=== PATIENT | female | born 1970 | race Caucasian/White ===

== ENCOUNTER 2017-03-06 02:37 | Emergency (ER) | payer MEDICAID, OTHER ==
[~2017-03-06] VITALS: Ht 157.5 cm; Wt 81.8 kg
[~2017-03-06 02:37] MED LIST: BACI28.34 TOP
[2017-03-06 02:44] VITALS: Ht 157.5 cm; Wt 81.8 kg
[2017-03-06] MEDS ORDERED: BEN50 PO (04:26)
[2017-03-06] MEDS ORDERED: IBUP-1542 PO (04:26)
[2017-03-06] MEDS ORDERED: CEPH-443 PO (04:26)
--- NOTE | 2017-03-06 04:49 | ERD ---
ER Documentation Chief Complaint Chief Complaint bit by spider behind left thigh. c/o redness and pain. HPI 46-year-old female presents to emergency department for complaints of an insect bite on the back of the left thigh tonight. Patient is complaining of pain redness and swelling, throbbing pain, 4/10 scale, as was upon touching the area. Patient denies any fever or chills. ROS All systems reviewed and are negative except as per history of present illness. Medications Home Meds Active Scripts Diphenhydramine Hcl* (Benadryl*) 50 Mg Cap, 50 MG PO Q6H Y for ITCHING/RASH, # 30 CAP Prov:ERLIN RIVERA MAINTENANCE SERVICE DISPATCHER 03/06/17 Ibuprofen* (Motrin*) 600 Mg Tab, 600 MG PO Q6H Y for PAIN AND OR ELEVATED TEMP, #30 TAB Prov:ERLIN RIVERA MAINTENANCE SERVICE DISPATCHER 03/06/17 Cephalexin* (Keflex*) 500 Mg Capsule, 500 MG PO QID for 7 Days, CAP Prov:ERLIN RIVERA MAINTENANCE SERVICE DISPATCHER 03/06/17 Bacitracin* (Bacitracin Zinc Oint*) 28.35 Gm Oint, 1 APPLIC TOP BID, #1 TUB APPLI TO Prov:FIDEL ROUSSEAU PA-C 11/07/15 Allergies Allergies: Coded Allergies: No Known Allergy (Unverified , 11/07/15) PMhx/Soc History of Surgery: Yes () Anesthesia Reaction: No Hx Neurological Disorder: No Hx Respiratory Disorders: No Hx Cardiac Disorders: No Hx Psychiatric Problems: No Hx Miscellaneous Medical Probl: No Hx Alcohol Use: No Hx Substance Use: No Hx Tobacco Use: No Smoking Status: Never smoker FmHx Family History: No coronary disease, No diabetes, No other Physical Exam Vitals Vital Signs Date Time Temp Pulse Resp B/P Pulse Ox O2 Delivery O2 Flow Rate FiO2 03/06/17 02:44 97.3 86 18 149/88 97 Physical Exam GENERAL: The patient is well developed and appropriate for usual state of health, in no apparent distress. CHEST: Clear to auscultation bilaterally. There are no rales, wheezes or rhonchi. HEART: Regular rate and rhythm. No murmurs, clicks, rubs or gallops. No S3 or S4. ABDOMEN: Soft, nontender and nondistended. Good bowel sounds. No rebound or guarding. No gross peritonitis. No gross organomegaly or masses. No Oconnor sign or McBurney point tenderness. BACK: No midline or flank tenderness. EXTREMITIES: Equal pulses bilaterally. There is no peripheral clubbing, cyanosis or edema. No focal swelling or erythema. Full range of motion. Grossly neurovascularly intact. NEURO: Alert and oriented. Cranial nerves 2-12 intact. Motor strength in all 4 extremities with 5/5 strength. Sensation grossly intact. Normal speech and gait. SKIN: 2 cm diameter erythematous indurated area in the left eye. No fluctuance noted. There is no apparent rash or petechia. The skin is warm and dry. HEMATOLOGIC AND LYMPHATIC: There is no evidence of excessive bruising or lymphedema. No gross cervical, axillary, or inguinal lymphadenopathy. Procedures/MDM Medical decision making: Patient symptoms was likely is consistent with insect bite, no symptoms of any infection at this time, no symptoms of any cellulitis, no symptoms of any neurovascular compromise, no symptoms of any necrosis. Prescription was given for Benadryl, ibuprofen, Keflex to prevent infection, is advised to follow-up with primary care doctor in 2 days for reevaluation of symptoms. Patient is advised to return to emergency department for any worsening symptoms. Disposition: Home. Stable. Departure Diagnosis: Primary Impression: Insect bite Encounter type: initial encounter Qualified Code: W57.XXXA - Insect bite, initial encounter Condition: Stable Patient Instructions: Insect Bite ERLIN RIVERA NP Mar 06, 2017 04:49
== END 2017-03-06 04:39 | disposition home or self-care (01) ==
LOC: FTE 02:37
DX: S70.361A Insect bite (nonvenomous), right thigh, initial encounter (principal); W57.XXXA Bitten or stung by nonvenomous insect and other nonvenomous arthropods, initial encounter; Y92.9 Unspecified place or not applicable
CPT/HCPCS: 99283

== ENCOUNTER 2017-05-21 09:10 | Emergency (ER) | END 2017-05-21 12:10 | disposition home or self-care (01) ==

== ENCOUNTER 2018-07-14 22:20 | Emergency (ER) | payer OTHER ==
[~2018-07-14] VITALS: Ht 157.5 cm; Wt 81.8 kg
[~2018-07-14 22:20] MED LIST changes: +BEN50 PO; +CEPH-443 PO; +IBUP-1542 PO; +NAPR-985 PO
[2018-07-14 22:22] VITALS: Ht 157.5 cm; Wt 81.8 kg
[2018-07-15] MEDS ORDERED: HYDROCODONE/APAP (5/325) TAB PO ONE (00:30)
[2018-07-15] MEDS ORDERED: IBUPROFEN 600 MG TAB PO ONE (00:30)
--- NOTE | 2018-07-15 00:38 | ERD ---
ER Documentation Chief Complaint Chief Complaint R ankle, L knee pain/swelling after fall 1 hr ago HPI This is a 47-year-old female with a history of hypertension diabetes mellitus presents ED with right ankle injury status post ground-level fall that occurred 1 hour prior to arrival in ED. Patient states that as she was walking down some stairs she accidentally missed a step causing her right ankle to invert. Patient admits to painful range of motion and decreased range of motion. Admits to difficulty ambulating. Denies tingling, numbness, lack sensation in all other symptoms. ROS All systems reviewed and are negative except as per history of present illness. Medications Home Meds Active Scripts Naproxen* (Naprosyn*) 500 Mg Tablet, 500 MG PO BID PRN for PAIN AND/OR INFLAMMATION, #30 TAB Prov:SHERYL ZAIDI PA-C 05/21/17 Diphenhydramine Hcl* (Benadryl*) 50 Mg Cap, 50 MG PO Q6H PRN for ITCHING/RASH, #30 CAP Prov:ERLIN RIVERA NP 03/06/17 Ibuprofen* (Motrin*) 600 Mg Tab, 600 MG PO Q6H PRN for PAIN AND OR ELEVATED TEMP, #30 TAB Prov:ERLIN RIVERA NP 03/06/17 Cephalexin* (Keflex*) 500 Mg Capsule, 500 MG PO QID for 7 Days, CAP Prov:ERLIN RIVERA NP 03/06/17 Bacitracin* (Bacitracin Zinc Oint*) 28.35 Gm Oint, 1 APPLIC TOP BID, #1 TUB APPLI TO Prov:FIDEL ROUSSEAU PA-C 11/07/15 Allergies Allergies: Coded Allergies: No Known Allergy (Unverified , 05/21/17) PMhx/Soc History of Surgery: Yes () Anesthesia Reaction: No Hx Neurological Disorder: No Hx Respiratory Disorders: No Hx Cardiac Disorders: No Hx Psychiatric Problems: No Hx Miscellaneous Medical Probl: Yes (HTN) Hx Alcohol Use: No Hx Substance Use: No Hx Tobacco Use: No Smoking Status: Never smoker FmHx Family History: diabetes Physical Exam Vitals Vital Signs Date Temp Pulse Resp B/P (MAP) Pulse Ox O2 O2 Flow FiO2 Time Delivery Rate 07/14/18 98.6 88 18 148/88 98 22:22 (108) Physical Exam Const: No acute distress Head: Atraumatic Eyes: Normal Conjunctiva ENT: Normal External Ears, Nose and Mouth. Neck: Full range of motion. No meningismus. Resp: Clear to auscultation bilaterally Cardio: Regular rate and rhythm, no murmurs Ext: No cyanosis Lower Extremity -right Skin: No laceration, moderate swelling and ecchymosis of right lateral malleolus, bruising extends along right lateral forefoot Compartments: Soft Motor: Full active range of motion hip/knee/ankle/foot Sensation: Intact to light touch FDWS/MF/LF/P surfaces. Bones: Moderate tenderness palpation along malleoli and lateral foot, nontender pelvis/knee/proximal tibia/ Joints: No effusion or laxity Pulses/Perfusion: 2+ DP, Capillary refill < 2 seconds Neur: Awake and alert Psych: Normal Mood and Affect Results 24 hrs Current Medications Medications Dose Sig/Laith Start Time Status Last (Trade) Ordered Route PRN Stop Time Admin Dose Reason Admin 1 tab ONCE ONCE 07/15/18 DC 07/15/18 Acetaminophen PO 00:30 07/15/18 00:33 / 00:31 Hydrocodone Bitart ([place] (5/325)) Ibuprofen 600 mg ONCE ONCE 07/15/18 DC 07/15/18 (Motrin) PO 00:30 07/15/18 00:32 00:31 Procedures/MDM EKG, MONITORS, & DIAGNOSTIC IMAGING: [place] [address] Radiology Main Line: [phone] DIAGNOSTIC IMAGING REPORT Patient: LILIANA SMITH : 1970 Age: 47 Sex: F MR #: [id number] DOS: 07/15/18 0020 Ordering MD: ANGELIQUE PEÑA PA-C Location: [facility] Room/Bed: PROCEDURE: Right ankle. CLINICAL INDICATION: Pain. TECHNIQUE: Three views including AP, lateral and oblique views were performed. COMPARISON: None. FINDINGS: There is a transverse fracture of the distal fibula with overlying soft tissue swelling. There is no dislocation. The ankle mortise is within normal limits. Bone mineralization is within normal limits. There is no radiopaque foreign body or abnormal calcification. IMPRESSION: Distal fibular fracture with overlying soft tissue swelling. .David Gonzales MD, MD Date Time Electronically viewed and signed by .David Gonzales MD, MD on 07/15/2018 01:31 .T/ CC: ANGELIQUE PEÑA PA-C [id number] [place] [address] Radiology Main Line: [phone] DIAGNOSTIC IMAGING REPORT Patient: LILIANA SMITH : 1970 Age: 47 Sex: F MR #: [id number] DOS: 07/15/18 0020 Ordering MD: ANGELIQUE PEÑA PA-C Location: [facility] Room/Bed: PROCEDURE: Right foot. CLINICAL INDICATION: Pain. TECHNIQUE: Three views including AP, lateral and oblique views of the right foot were obtained. The images were reviewed on a PACS workstation. COMPARISON: None. FINDINGS: There is a fracture of the distal fibula. There is no dislocation. The joint spaces are within normal limits. Bone mineralization is within normal limits. There is no radiopaque foreign body or abnormal calcification. IMPRESSION: Distal fibular fracture. .David Gonzales MD, MD Date Time Electronically viewed and signed by .David Gonzales MD, MD on 07/15/2018 01:32 .T/ CC: ANGELIQUE PEÑA PA-C [id number] PROCEDURES: Splint Type: Posterior short leg splint Extremity: Right lower extremity Indication: Fibula fracture Splint Assessment: Neurovascularly intact post splint placement with good fit. The patient was consented at bedside prior to splint application and states understanding of risks, benefits, and alternatives. The patient was neurovascularly intact prior to and status post application of the splint. The patient tolerated the procedure well and there were no complications ER COURSE: The patient was given [place] and ibuprofen The medication was well tolerated and the patient reports improvement in symptoms. The patient was stable throughout ED course. I kept the patient and/or family informed of laboratory and diagnostic imaging results throughout the emergency room course. The patient was promptly evaluated and a treatment plan was devised based on H&P and other data. This plan was discussed with the patient who agreed and had no further questions or concerns prior to discharge. MEDICAL DECISION MAKIN-year-old female presents ED with right ankle pain status post ground-level fall that occurred 1 hour prior to arrival in ED. X-rays remarkable for distal fibular fracture with overlying soft tissue swelling. Patient was placed in a posterior short leg splint and given crutches. Patient was also given copies of x-ray imaging done in the emergency department today and advised to follow-up with economic specialist in the next 48 hours. History and physical examin ation other data not consistent with emergent processes including but not limited to open fracture, dislocation, tendon rupture, ischemia, neurovascular injury, compartment syndrome, septic joint, avascular necrosis, osteomyelitis, necrotizing fasciitis, septic joint, septic arthritis, or other emergent conditions. Patient's vitals are stable and can be managed outpatient with ambika se follow-up. Advised patient to follow-up with primary care in the next 48 hours. Return to ED with any worsening symptoms. DISPOSITION PLAN: We discussed follow up with the patient's primary care doctor within 24 to 48 hours. Patient counseled regarding my diagnostic impression and care plan. Prior to discharge all questions answered. Pt agrees with treatment plan and understands strict return precautions. Precautionary instructions provided including instructions to return to the ER if not improving or for any worsening or changing symptoms or concerns. SPECIALIST FOLLOW UP RECOMMENDED: Orth O Patient has been advised to follow up with primary care in 1-2 days. Disclaimer: Inadvertent spelling and grammatical errors are likely due to EHR/dictation software use and do not reflect on the overall quality of patient care. Also, please note that the electronic time recorded on this note does not necessarily reflect the actual time of the patient encounter. Departure Diagnosis: Primary Impression: Fibula fracture Encounter type: initial encounter Fibula location: distal Fracture type: closed Fracture morphology: unspecified fracture morphology Laterality: right Qualified Codes: S82.831A - Other fracture of upper and lower end of right fibula, initial encounter for closed fracture Condition: Stable Patient Instructions: Ankle Fracture (Distal Fibula), Closed Referrals: JH TIAN MD [facility] () [facility] Additional Instructions: Paciente aconseja volver a Departamento de urgencias inmediatamente para sntomas nuevos o que empeoran . Paciente aconseja posteriores con el PCP en 1-2 hayden . Paciente verbaliza la comprehensin y est de acuerdo con el tratamiento y el curso de accin. Si el paciente no tiene ninguna de atencin primaria pueden seguir con [facility] [address] [place] [address] o [facility] + [address] [address] ANGELIQUE PEÑA PA-C Jul 15, 2018 00:37
[2018-07-15] MEDS ORDERED: HYDR-4011 PO (01:42)
[2018-07-15] MEDS ORDERED: IBUP-1542 PO (01:42)
[2018-07-15 01:57] VITALS: BP 124/85; PULSE 83; RESP 18
== END 2018-07-15 02:00 | disposition home or self-care (01) ==
LOC: FTE 22:20
DX: S82.831A Other fracture of upper and lower end of right fibula, initial encounter for closed fracture (principal); I10 Essential (primary) hypertension; E11.9 Type 2 diabetes mellitus without complications; W18.30XA Fall on same level, unspecified, initial encounter; Y92.9 Unspecified place or not applicable
CPT/HCPCS: 29515; 73610; 73630; Z7502; Z7610